=== PATIENT | female | born 1970 | race African-American/Black ===

== ENCOUNTER 2018-10-14 15:09 | Outpatient (CLI) | payer OTHER ==
--- NOTE | 2018-10-26 10:40 | MMO ---
BILATERAL SCREENING MAMMOGRAMS: Date: 10/14/18 Comparison made to prior outside films from 2013, 2014, and 2016. This patient's mammogram was interpreted with the assistance of computer-aided detection. FINDINGS: Scattered fibroglandular densities. There is a questioned new asymmetric density in the inner right breast seen on CC view. The area of c oncern is marked on the film. This is not definitely seen in the MLO projection, but may reside in th e lower mid right breast. IMPRESSION: Question new density in the inner right breast seen best on CC view. Recommend further evaluation wit h diagnostic right breast mammogram. BIRADS 0: Incomplete: Need Additional Imaging Evaluation and/or Prior Mammograms for Comparison The facility will notify patient of need for additional imaging services. POS: JUVENAL
== END 2018-10-14 15:10 | disposition home or self-care (01) ==
LOC: SCSMAMMO 15:09
PROVIDERS: ATTEND Family Medicine
DX: Z12.31 Encounter for screening mammogram for malignant neoplasm of breast (principal)
CPT/HCPCS: 77067

== ENCOUNTER 2018-10-29 14:15 | Outpatient (CLI) | payer OTHER ==
--- NOTE | 2018-10-29 15:29 | ULT ---
RIGHT BREAST ULTRASOUND: Date: 10/29/18 HISTORY: Abnormal mammogram. FINDINGS: Correlation is made with the mammograms from today and 10/14/18. Sonographic evaluation of the right inner breast demonstrates a well-circumscribed oval 7.0 mm cyst a t the 3 o'clock position, 2.0 cm from the nipple, corresponding to the mammographic finding. IMPRESSION: BIRADS Category 2 - Benign findings. Return to annual mammographic screening. POS: OFF
--- NOTE | 2018-10-29 18:23 | MMO ---
Right Breast MAMMO Unilat Diag DDI RT+KYA. CLINICAL HISTORY: Patient is 48 years old and is seen for additional evaluation requested from prior study. The patient has no family history of breast cancer. The patient has a history of cervical cancer. VIEWS: The views performed were: right craniocaudal spot compression with tomosynthesis; right mediolateral oblique spot compression with tomosynthesis; and right mediolateral with tomosynthesis. FILMS COMPARED: The present examination has been compared to prior imaging studies performed at [facility] on 10/14/2018, at [facility] on 10/29/2018, and at [facility] on 09/22/2012, 08/02/2014, 08/26/2014 and 09/26/2016. MAMMOGRAM FINDINGS: There are scattered fibroglandular densities. The nodule in the right inner breast seen on mammogram and addl CC views corresponds to a cyst at 3:00 on the US. IMPRESSION: FINDING IN THE RIGHT BREAST IS BENIGN. A ROUTINE FOLLOW-UP MAMMOGRAM IN 1 YEAR IS RECOMMENDED. THE RESULTS OF THIS EXAM WERE SENT TO THE PATIENT. ACR BI-RADS Category 2 - Benign finding MAMMOGRAPHY NOTE: 1. A negative mammogram report should not delay a biopsy if a dominant of clinically suspicious mass is present. 2. Approximately 10% to 15% of breast cancers are not detected by mammography. 3. Adenosis and dense breasts may obscure an underlying neoplasm.
== END 2018-10-29 14:16 | disposition home or self-care (01) ==
LOC: BICMAMMO 14:15
PROVIDERS: ATTEND Family Medicine
DX: N63.12 Unspecified lump in the right breast, upper inner quadrant (principal); Z85.41 Personal history of malignant neoplasm of cervix uteri
CPT/HCPCS: G0279